=== PATIENT | female | born 1980 | race Caucasian/White ===

== ENCOUNTER 2017-03-27 05:28 | Day surgery (SDC) | payer OTHER ==
[~2017-03-27] VITALS: Ht 160 cm; Wt 81.7 kg
[~2017-03-27 05:28] MED LIST: ADVIL200 MG PO; DAILY VALUE1 EACH PO; MOTRIN800 MG PO; NORCO 5/3251 TABLET PO; VITAMIN B COMP PO
[2017-03-27 06:04] VITALS: BP 118/79
[2017-03-27 13:43] VITALS: BP 112/69
[2017-03-27 16:10] LABS: HEMATOCRIT 37.8 % (36.0-46.0); MCV 88.9 FL (83-99)
[2017-03-27 18:30] VITALS: BP 107/62
[2017-03-27 19:02] VITALS: BP 120/79
[2017-03-28 00:04] VITALS: BP 110/70
[2017-03-28 03:31] VITALS: BP 103/67
[2017-03-28 07:10] LABS: HEMATOCRIT 37.5 % (36.0-46.0); MCH 30.1 PG (29.0-34.0); MCHC 33.1 G/DL (30.0-36.0); MEAN PLAT.VOLUME 9.9 uM^3 (9.5-12.4); PLATELET COUNT 233 K/uL (156-360); RBC DIS.WIDTH-CV 13.2 % (11.8-14.6); RBC DIS.WIDTH-SD 43.6 % (39-53); RED BLOOD COUNT 4.12 M/uL (3.80-5.20); WHITE BLOOD COUNT 7.4 K/uL (4.1-10.2)
[2017-03-28 07:34] LABS: ANION GAP 6 MEQ/L (2-14); CHLORIDE 103 MEQ/L (99-109); GFR ESTIMATE (CALCULATED) > 59 mL/min/; GLUCOSE 83 mg/dL (70-99); POTASSIUM 3.5 MEQ/L (3.7-5.4); SAMPLE HEMOLYSIS CHECK 0; SAMPLE ICTERIC CHECK 0; SAMPLE LIPEMIA CHECK 0; SODIUM 137 MEQ/L (136-147); UREA NITROGEN (BUN) 6 mg/dL (9-23)
[2017-03-28 07:45] VITALS: BP 108/71
[2017-03-28] MEDS ORDERED: ENDOCET 5-3251 EACH PO (08:32)
[2017-03-28] MEDS ORDERED: COLACE100 MG PO (08:32)
[2017-03-28] MEDS ORDERED: MOTRIN800 MG PO (08:32)
[2017-03-28 11:10] VITALS: BP 110/61
== END 2017-03-28 14:00 | disposition home or self-care (01) ==
LOC: SDC → ENRESERV 11:11 → 2SOUTH 11:12 → ENRESERV 11:20 → 2EAST 13:37 → SDC 13:42 → 2EAST 03-28 14:00
PROVIDERS: Obstetrics & Gynecology
DX: N92.0 Excessive and frequent menstruation with regular cycle (principal); N94.6 Dysmenorrhea, unspecified; N73.6 Female pelvic peritoneal adhesions (postinfective); E28.2 Polycystic ovarian syndrome; Q51.2 Other doubling of uterus; E66.9 Obesity, unspecified; Z68.31 Body mass index [BMI] 31.0-31.9, adult
CPT/HCPCS: 80048; 85014; 85018; 85027; 88307; 94799; G0378; J0690; J1170; J1644; J1885; J2250; J2405; J2710; J3010; J7120; S0020